=== PATIENT | female | born 1975 | race Hispanic/Latino ===

== ENCOUNTER → 2024-03-02 11:09 | Outpatient (REF) | payer BC, SELFPAY | LOC: HWRAD 11:09 | PROVIDERS: ATTENDING PHYSICIAN Nurse Practitioner Adult Health; FAMILY PHYSICIAN Family Medicine | DX: E78.5 Hyperlipidemia, unspecified (principal); E66.9 Obesity, unspecified; R06.09 Other forms of dyspnea; I89.0 Lymphedema, not elsewhere classified; R94.31 Abnormal electrocardiogram [ECG] [EKG] | CPT/HCPCS: 76700 ==

== ENCOUNTER → 2024-03-10 11:10 | Outpatient (REF) | payer BC, SELFPAY | LOC: HWWDC 11:10 | PROVIDERS: ATTENDING PHYSICIAN Obstetrics & Gynecology; FAMILY PHYSICIAN Family Medicine | DX: Z12.31 Encounter for screening mammogram for malignant neoplasm of breast (principal) | CPT/HCPCS: 77063; 77067 ==

== ENCOUNTER 2024-09-21 10:39 | Emergency (ER) | payer BC, SELFPAY ==
[2024-09-21 10:46] VITALS: BP 124/89
[2024-09-21 11:22] VITALS: BP 122/71
[2024-09-21 11:27] LABS: COVID-19 Antigen Negative (Negative)
[2024-09-21 11:30] VITALS: BMI 35.5
[2024-09-21 11:43] LABS: % Basophils 0.3 % (0-2); % Eosinophils 0.3 % (0-6); % Immature Granulocytes 0.3 % (0-0.5); % Lymphocytes 16.6 % (20.5-51.1); % Monocytes 15.8 % (1.7-9.3); % Neutrophils 66.7 % (42.2-75.2); Absolute Lymphocytes 0.6 10^3/uL (1.2-3.4); Absolute Monocytes 0.6 10^3/uL (0.1-0.6); Absolute Neutrophils 2.5 10^3/uL (1.4-6.5); Hemoglobin 14.3 g/dL (12.0-16.0); Mean Corpuscular Hgb 30.5 pg (27.0-31.0); Mean Corpuscular Volume 89.6 fL (81.0-99.0); Mean Platelet Volume 11.5 fL (7.4-10.4); Nucleated Red Blood Cells % 0 %; Platelet Count 155 10^3/uL (130-400); Red Blood Cell Count 4.69 10^6/uL (4.20-5.40); Red Cell Dist. Width 13.3 % (11.5-14.5); White Blood Cell Count 3.7 10^3/uL (4.8-10.8)
[2024-09-21 12:04] LABS: ALT (SGPT) 16 U/L (0-35); AST (SGOT) 23 U/L (14-36); Alkaline Phosphatase 51 U/L (38-126); Blood Urea Nitrogen 9 mg/dl (7-17); Calcium 8.9 mg/dl (8.4-10.2); Carbon Dioxide 28 mmol/L (22-30); Chloride 100 mmol/L (98-107); Estimated Creatinine Clearance 113 ml/min; Glucose 99 mg/dl (70-99); Potassium 3.8 mmol/L (3.5-5.1); Sodium 133 mmol/L (135-145); Total Bilirubin 0.2 mg/dl (0.2-1.3); eGFR > 60.00
--- NOTE | 2024-09-21 12:07 | ED.GENMED ---
History of Present Illness
General
Chief Complaint: Cold/Flu/URI Symptoms
Source: patient
Exam Limitations: none
Time Seen by Provider: 09/21/24 11:24
Nursing documentation reviewed up to this point in time: agreed with
History of Present Illness
History of Present Illness:
48 yo female with hx of chronic presents for fever, cough, fatigue lower extremity lymphedema that started 3 days ago. Her last Tylenol was at 4 AM. She also has pain in the mid upper chest with coughing. Denies N/V. She does have a headache.
Past History
Past History
ED Past Medical History: Other (Chronic lymphedema of legs, left leg chronically larger than right.)
Social History
Tobacco: Non-smoker
Alcohol: None
Drug: None
Personal:
Living: with family
Employment: Employed
Family History
Family History: Other (Noncontributory)
Review of Systems
Review of Systems
Allergies reviewed?: Yes
All Other Systems: ROS reviewed and negative except as documented in HPI and ROS
Constitutional: Reports fever and fatigue
EENT: Denies sore throat
Respiratory: Reports cough; Denies trouble breathing
Cardiac: Reports chest pain
ABD/GI: Denies abdominal pain, nausea, vomiting or diarrhea
: Denies dysuria, frequency or difficulty voiding
Musculoskeletal: Reports no symptoms
Skin: Reports no symptoms
Neurological: Reports headache; Denies dizzy, weakness or numbness
Phy Exam
Physical Exam
Physical Exam:
GENERAL: No acute distress. A&Ox3.
CONSTITUTIONAL: Temp 101.6
EYES: clear, conjunctivae normal
ENMT: moist mucus membranes, Pharynx nl
RESPIRATORY: Regular respirations, nonlabored, lungs clear. Intermittent cough
CARDIOVASCULAR: Regular rate and rhythm, no murmurs, no rubs.
GI: Soft, nontender, normal BS
MUSCULOSKELETAL: Significant lymphedema L>R. Moves with some difficulty due to size of legs.
SKIN: Warm, dry, pink
PSYCH: Normal mood and affect. Well kept, interactive and appropriate
NEUROLOGIC: Awake, alert and oriented. No focal neurological deficits
Course
Orders/Labs/Results
Orders:
Orders
09/21/24 11:06
COVID-19 Antigen Urgent
Source: Nasal Swab
Influenza A+B Rapid Molecular Urgent
NATALEE Source: Nasal Swab
Specimen Description:
09/21/24 11:12
IV Insert/Care/Rem.- Treatment PRN
09/21/24 11:20
Complete Blood Count/With Diff Urgent
Comprehensive Metabolic Panel Urgent
09/21/24 11:31
Electrocardiogram (*1) Urgent
Reason for Study: Chest Pain
EKG- Treatment ONCE
09/21/24 12:06
Acetaminophen [Tylenol] 1,000 mg PO NOW STA
09/21/24 12:07
CR Chest - 2 Views Urgent
Comment:
Reason For Exam: cough, fever, flu A pos
09/21/24 15:04
Azithromycin [Zithromax] 500 mg PO NOW STA
09/21/24 15:05
Azithromycin [Zithromax] 500 mg .ROUTE .STK-MED ONE
Abnormal Lab Results
09/21/24
11:20
WBC 3.7 L 10^3/uL
(4.8-10.8)
MPV 11.5 H fL
(7.4-10.4)
Absolute Lymphs (auto) 0.6 L 10^3/uL
(1.2-3.4)
Lymphocytes % 16.6 L %
(20.5-51.1)
Monocytes % 15.8 H %
(1.7-9.3)
Sodium 133 L mmol/L
(135-145)
09/21/24 11:20
09/21/24 11:20
Vital Signs
Initial and Last Documented VS:
Initial Vital Signs
Temp Pulse Resp BP Pulse Ox
100.1 F 118 16 124/89 97
09/21/24 10:46 09/21/24 10:46 09/21/24 10:46 09/21/24 10:46 09/21/24 10:46
Last Documented Vital Signs
Temp Pulse Resp BP Pulse Ox
99.6 F 90 18 97/58 94
09/21/24 14:01 09/21/24 14:01 09/21/24 14:01 09/21/24 14:01 09/21/24 14:01
MDM/Problems Addressed
Differential Diagnosis Includes:
Flu, Covid, PNA
MDM/Problems Addressed:
48 yo female with hx of chronic presents for fever, cough, fatigue lower extremity lymphedema that started 3 days ago. Her last Tylenol was at 4 AM. She also has pain in the mid upper chest with coughing.
Temperature 101.6.
EKG: Sinus tach 106
Pulse ox 97% RA
CBC with no clinically significant abnormality
CMP normal
COVID-negative
Flu a positive
2:45 p.m.
CXR: IMPRESSION:
Bibasilar patchy opacities which are likely related to viral/atypical infection. There is associated trace right-sided pleural effusion.
Pt defervesced to 99.6, drinking and eating well
Rx for Azithromycin and Tessalon Perles sent to her pharmacy
Stable for discharge
*Critical Care Note
Total Time (30-74mins, 75-104mins- exclusive of procedures): Not Applicable
ED Attending Note
-
Portions of this chart may have been created with voice recognition software.� Occasional wrong word or��sound alike� substitutions may have occurred due to the inherent limitations of voice recognition software.
Discharge Plan
Departure
Patient Disposition: Home (Routine Discharge)
Date of Disposition: 09/21/24
Time of Disposition: 15:05
Patient with high blood pressure during this ER visit?: No
Condition: Fair
Covid-19: Negative COVID-19
Discharge Problem:
Influenza A, Atypical pneumonia
Instructions: Fever, Adult (DC), Pneumonia in adults - Discharge instructions, Flu in adults - ED discharge instructions
Prescriptions:
New
azithromycin 250 mg tablet
250 mg PO DAILY 4 Days Qty: 4 0RF
benzonatate 100 mg capsule
100 mg PO TID PRN (Reason: Cough) Qty: 20 0RF
No Action
ascorbic acid (vitamin C) [Vitamin C] 500 mg Tablet
500 mg PO DAILY
cholecalciferol (vitamin D3) [Vitamin D3] 25 mcg (1,000 unit) Capsule
25 mcg PO DAILY
tramadol 50 mg tablet
50 mg PO Q8H PRN (Reason: Mod sev pain) Qty: 14 0RF
midodrine 5 mg Tablet
5 mg PO TID@0800,1300,1800 Qty: 60 0RF
Rx Instructions:
HOLD DOSE IF SYSTOLIC BLOOD PRESSURE GREATER THAN 100
cephalexin 500 mg capsule
500 mg PO BID 3 Days Qty: 6 0RF
Referrals:
Suzanne Muñoz, [Family Provider] - Follow up in 10 days
Activity Restrictions/Additional Instructions:
As we discussed, you most likely have something called atypical pneumonia or walking pneumonia.
You had a dose of antibiotic azithromycin here today, I sent the rest of the prescription to your pharmacy, pick it up and start it tomorrow
Alternate Tylenol 650 or 1000 mg with ibuprofen 600 mg taking 1 or the other every 3 hours as needed for fever or body aches.
Interventions
Interventions:
*Risk Screen - Suicide Last Done: 09/21/24 10:46
*General Assessment Last Done: 09/21/24 11:30
*Neglect/Abuse Screening Last Done: 09/21/24 10:46
ED- Fall Risk Assessment Last Done: 09/21/24 11:09
*ED COVID-19 Vaccine History Last Done: 09/21/24 11:30
*Nursing Disposition Last Done: 09/21/24 15:47
ED- Pulmonary Assessment Last Done: 09/21/24 11:27
Discharge Date and Time
Print Language: GABONESE
[2024-09-21] MEDS: TYLENOL 1000 MG PO (12:10)
[2024-09-21 14:01] VITALS: BP 97/58
--- NOTE | 2024-09-21 14:10 | EDRN ---
Pt OOB at this time and now voiding on commode.
[2024-09-21] MEDS: ZITHROMAX 500 MG PO (15:09)
--- NOTE | 2024-09-21 15:10 | EDRN ---
Pt states her cannot pick her up until 16:00.
--- NOTE | 2024-09-21 15:40 | EDRN ---
Pt discharged to [facility] to await spouse who is picking up their children from school and will not arrive until after 16:00. Pt stated she could not get up but pt was able to get up to chair on other side of room and onto commode. Pt did get up to w/c
and got in and taken to recliner #4 and settled in. Barak CALDERON given report on pt.
--- NOTE | 2024-09-21 16:33 | EDRN ---
Barak Said pt left from [facility] at 16:18
== END 2024-09-21 16:18 | disposition home or self-care (01) ==
LOC: EMR 10:39
PROVIDERS: EMERGENCY PHYSICIAN Student in an Organized Health Care Education/Training Program; FAMILY PHYSICIAN Family Medicine
DX: J10.00 Influenza due to other identified influenza virus with unspecified type of pneumonia (principal); J18.9 Pneumonia, unspecified organism; Z11.52 Encounter for screening for COVID-19
CPT/HCPCS: 99285; 71046; 80053; 85025; 87502; 87811; 93005

== ENCOUNTER 2024-09-23 17:58 | Emergency (ER) | payer BC, SELFPAY ==
[2024-09-23 18:12] VITALS: BP 110/72
--- NOTE | 2024-09-23 18:15 | ED.GENMED ---
ED Provider Triage
-
Patient seen by provider in Triage?: Seen in Triage
Attestation: A medical screening examination has been initiated by a qualified medical provider. Based on the assessment performed at this time, it has been determined that an emergent medical condition may exist and the patient has been informed
that further medical evaluation and possible additional diagnostic testing may be needed.
HPI: Recently seen in this ER 2 days ago and diagnosed with atypical pneumonia, today felt worsening shortness of breath and lightheadedness. Pulse ox 85% reportedly at home. Here 97% patient in no acute respiratory distress. Reports fever last
night. Afebrile here. Imaging and labs from the other day reviewed. Will repeat labs and EKG.
GENERAL: Alert , in no apparent distress
EYE: No visual abnormalities.
NECK: Trachea midline
ENT: No visible abnormalities.
LUNGS: No acute respiratory distress
NEUROLOGICAL: Alert and oriented
SKIN: Skin intact. No visible changes.
MUSCULOSKELETAL: Moving extremities normally
PSYCH: Normal and appropriate interaction.
This is a medical evaluation conducted in person to initiate diagnostic evaluation and provide initial therapeutics. Please see further documentation by the treating clinician.
History of Present Illness
General
Chief Complaint: Breathing Problem
Source: patient
Time Seen by Provider: 09/23/24 18:59
History of Present Illness
History of Present Illness:
48-year-old female presenting back to the emergency department for evaluation after she was diagnosed with flu and pneumonia 2 days ago while in the emergency department, today was checking her pulse ox at home and noted it was 88% on room air.
Patient notes continued cough and shortness of breath prompting her to come back to the ER. No new symptoms today.
Past History
Past History
ED Past Medical History: Other (Chronic lymphedema of legs, left leg chronically larger than right.)
ED Past Surgical History: Other
Social History
Tobacco: Non-smoker
Alcohol: None
Drug: None
Personal:
Living: with family
Employment: Employed
Family History
Family History: Other (Noncontributory)
Review of Systems
Review of Systems
All Other Systems: ROS reviewed and negative except as documented in HPI and ROS
Phy Exam
Physical Exam
Physical Exam:
GENERAL: Alert , in no apparent distress
EYE: conjunctiva clear
Head: Normocephalic atraumatic
NECK: Supple,
ENT: mmm.
LUNGS: no acute respiratory distress
NEUROLOGICAL: Alert and oriented
SKIN: Warm and dry, skin intact.
MUSCULOSKELETAL: well perfused.
PSYCH: Normal and appropriate interaction.
Scores
Heart Failure Risk
Heart Failure Risk Score: Not Applicable
Heart Score for Chest Pain Patients
STEMI patient?: Not applicable
Withdrawal Assessment of Alcohol
Withdrawal Assessment Completed?: Not applicable
Course
Orders/Labs/Results
Orders:
Orders
09/23/24 18:14
Basic Metabolic Panel Urgent
Complete Blood Count/With Diff Urgent
09/23/24 18:15
NT-proBNP Urgent
Troponin I Urgent
Vital Signs
Initial and Last Documented VS:
Initial Vital Signs
Pulse Ox
98
09/23/24 18:00
Last Documented Vital Signs
Temp Pulse Resp BP Pulse Ox
98.4 F 80 16 110/72 98
09/23/24 18:12 09/23/24 18:12 09/23/24 18:12 09/23/24 18:12 09/23/24 18:12
MDM/Problems Addressed
Differential Diagnosis Includes:
Known flu, viral pneumonia, I do not have concern for PE or other emergent pathology
MDM/Problems Addressed:
48-year-old female presenting back to the emergency department after being diagnosed with flu 2 days ago. Patient concerned because her home pulse oximeter was reading 88% on room air. Patient continuously monitored and has a pulse ox between 97
and 99% on room air and is in no acute respiratory distress. Patient was placed back out in the waiting room and ultimately was requesting to be discharged home as she did not feel anything further would be done. Labs have been ordered however
patient is declining. At this time has a normal pulse ox and is in no acute respiratory distress and hemodynamically stable I do feel it is reasonable patient to be discharged home. She was again advised on return precautions but otherwise stable.
*Pulse Oximetry
Patient hypoxic: no
*Critical Care Note
Total Time (30-74mins, 75-104mins- exclusive of procedures): Not Applicable
Data Reviewed
Review of Other/Old Records Reveals: Labs, Records and Radiology Studies
ED Attending Note
-
Portions of this chart may have been created with voice recognition software.� Occasional wrong word or��sound alike� substitutions may have occurred due to the inherent limitations of voice recognition software.
Discharge Plan
Departure
Patient Disposition: Home (Routine Discharge)
Date of Disposition: 09/23/24
Time of Disposition: 18:58
Patient with high blood pressure during this ER visit?: No
Discharge Problem:
Influenza A
Instructions: Flu in adults - Discharge instructions
Prescriptions:
No Action
ascorbic acid (vitamin C) [Vitamin C] 500 mg Tablet
500 mg PO DAILY
cholecalciferol (vitamin D3) [Vitamin D3] 25 mcg (1,000 unit) Capsule
25 mcg PO DAILY
tramadol 50 mg tablet
50 mg PO Q8H PRN (Reason: Mod sev pain) Qty: 14 0RF
midodrine 5 mg Tablet
5 mg PO TID@0800,1300,1800 Qty: 60 0RF
Rx Instructions:
HOLD DOSE IF SYSTOLIC BLOOD PRESSURE GREATER THAN 100
cephalexin 500 mg capsule
500 mg PO BID 3 Days Qty: 6 0RF
azithromycin 250 mg tablet
250 mg PO DAILY 4 Days Qty: 4 0RF
benzonatate 100 mg capsule
100 mg PO TID PRN (Reason: Cough) Qty: 20 0RF
Interventions
Interventions:
*Risk Screen - Suicide Last Done: 09/23/24 18:12
*General Assessment Last Done: 09/23/24 18:12
*ED COVID-19 Vaccine History Last Done: 09/23/24 18:12
*Nursing Disposition Last Done: 09/23/24 19:16
Discharge Date and Time
Discharge Date/Time: 09/23/24 19:00
Print Language: LAO
== END 2024-09-23 19:00 | disposition home or self-care (01) ==
LOC: EMR 17:58
PROVIDERS: EMERGENCY PHYSICIAN Emergency Medicine
DX: J10.1 Influenza due to other identified influenza virus with other respiratory manifestations (principal)
CPT/HCPCS: 99282

== ENCOUNTER 2024-12-17 14:37 | Observation (INO) | payer OTHER, SELFPAY ==
[2024-12-17] VITALS (8 sets, daily range): BP systolic 104–140; BP diastolic 67–85; BMI 32.8; BMI 36.4
[2024-12-17 11:33] LABS: % Basophils 0.5 % (0-2); % Eosinophils 2.7 % (0-6); % Immature Granulocytes 0.2 % (0-0.5); % Lymphocytes 33.7 % (20.5-51.1); % Monocytes 5.1 % (1.7-9.3); % Neutrophils 57.8 % (42.2-75.2); Absolute Eosinophils 0.2 10^3/uL (0-0.7); Absolute Monocytes 0.3 10^3/uL (0.1-0.6); Absolute Neutrophils 3.4 10^3/uL (1.4-6.5); Hematocrit 43.4 % (37.0-47.0); Hemoglobin 14.6 g/dL (12.0-16.0); Mean Corp Hgb Conc. 33.6 g/dL (33.0-37.0); Mean Corpuscular Volume 92.1 fL (81.0-99.0); Nucleated Red Blood Cells % 0 %; Platelet Count 196 10^3/uL (130-400); Red Blood Cell Count 4.71 10^6/uL (4.20-5.40); Red Cell Dist. Width 13.1 % (11.5-14.5); White Blood Cell Count 5.9 10^3/uL (4.8-10.8)
--- NOTE | 2024-12-17 11:44 | ED.GENMED ---
History of Present Illness
General
Chief Complaint: Swelling
Source: patient and records
Time Seen by Provider: 12/17/24 11:21
History of Present Illness
History of Present Illness:
48-year-old female with past medical history of chronic lymphedema presenting to the emergency department for evaluation of acute on chronic exacerbation of her lymphedema now with erythema, pain and worsening edema over the last 48 to 72 hours,
yesterday reportedly had a tactile fever that improved with Tylenol. Patient states she was admitted for a similar infection about a year ago secondary to a dog bite. She states she has been to multiple lymphedema specialists and gets treatment as
an outpatient but states none of this seems to be helping. She has been also seen by vascular and wound care. Patient denies any focal weakness, numbness, chest pain, shortness of breath or any other concerns presently.
Past History
Past History
ED Past Medical History: Other (Chronic lymphedema of legs, left leg chronically larger than right.)
ED Past Surgical History: Other
Social History
Tobacco: Non-smoker
Alcohol: None
Drug: None
Personal:
Living: with family
Employment: Employed
Family History
Family History: Other (Noncontributory)
Review of Systems
Review of Systems
All Other Systems: ROS reviewed and negative except as documented in HPI and ROS
Phy Exam
Physical Exam
Physical Exam:
GENERAL: Alert , in no apparent distress
HEAD: NCAT
EYE: clear conjunctiva
NECK: Supple
ENT: o/p clr, mmm.
CARDIAC: Regular rate and rhythm .
LUNGS: Clear breath sounds bilaterally, no acute respiratory distress, no wheezes/rales/rhonchi
NEUROLOGICAL: Alert and oriented
SKIN: Warm and dry, severe lymphedema b/l, left significantly worse than right. There is circumferential erythema to lower half of the left lower leg. CR < 2 sec, sensation grossly intact to light touch. LROM at ankle and foot 2/2 edema
MUSCULOSKELETAL: see skin exam
PSYCH: Normal and appropriate interaction.
Scores
Heart Failure Risk
Heart Failure Risk Score: Not Applicable
Heart Score for Chest Pain Patients
STEMI patient?: Not applicable
Withdrawal Assessment of Alcohol
Withdrawal Assessment Completed?: Not applicable
Course
Orders/Labs/Results
Orders:
Orders
12/17/24 11:15
Complete Blood Count/With Diff Urgent
Comprehensive Metabolic Panel Urgent
Lactic Acid Urgent
Blood Culture Urgent
NATALEE Source: Blood/Venous
Specimen Description:
12/17/24 11:33
US Periph Venous LOWER Ext LT Urgent
Comment:
Reason For Exam: edema, erythema
12/17/24 11:43
NT-proBNP Urgent
Vancomycin [Vancocin] 2,000 mg 0.9% Sodium Chloride 500 ml [Nss] 500 ml IV NOW
Abnormal Lab Results
12/17/24
11:15
MPV 12.0 H fL
(7.4-10.4)
12/17/24 11:15
12/17/24 11:15
Vital Signs
Initial and Last Documented VS:
Initial Vital Signs
Temp Pulse Resp BP Pulse Ox
97.7 F 74 16 140/83 100
12/17/24 11:03 12/17/24 11:03 12/17/24 11:03 12/17/24 11:03 12/17/24 11:03
Last Documented Vital Signs
Temp Pulse Resp BP Pulse Ox
97.7 F 81 17 116/76 99
12/17/24 11:03 12/17/24 12:45 12/17/24 12:45 12/17/24 12:25 12/17/24 12:45
MDM/Problems Addressed
Differential Diagnosis Includes:
Acute on chronic exacerbation of lymphedema, venous stasis dermatitis, cellulitis, DVT
MDM/Problems Addressed:
48-year-old female presenting to the ER for evaluation of left lower extremity edema, erythema, reportedly febrile last night. Afebrile here and in no acute distress. Patient does have severe left lower extremity lymphedema with what appears to be
venous stasis dermatitis but cannot rule out a superimposed cellulitis. Given patient reports a fever will check labs and start patient on IV antibiotics. Patient reportedly had reaction to Unasyn and self started herself on Keflex a few days ago.
Will treat with Vanco now. Plan to admit
Chronic conditions affecting care: Other (Lymphedema/chronic venous stasis)
*Radiology
Radiology exam reviewed: radiology read reviewed
*Pulse Oximetry
Patient hypoxic: no
*Critical Care Note
Total Time (30-74mins, 75-104mins- exclusive of procedures): Not Applicable
Data Reviewed
Review of Other/Old Records Reveals: Labs, Records and Discharge Summary
Patient Management
Discussion with other providers: Hospitalist
Escalation/DeEscalation of care consider admission/obs:
Patient's ultrasound is negative for DVT. We discussed possibility of outpatient treatment by changing antibiotic however due to patient's pain and reported fever we will plan for admission for IV antibiotics and monitoring. Hospitalist team
notified and accepts for continued evaluation and treatment
ED Attending Note
-
Portions of this chart may have been created with voice recognition software.� Occasional wrong word or��sound alike� substitutions may have occurred due to the inherent limitations of voice recognition software.
Discharge Plan
Departure
Patient Disposition: Admit
Date of Disposition: 12/17/24
Time of Disposition: 13:09
Presentation/result/management discussed w/ accepting MD/DO: Hospitalist
Discharge Problem:
Cellulitis of left lower extremity, Lymphedema, Venous stasis dermatitis
Prescriptions:
No Action
ascorbic acid (vitamin C) [Vitamin C] 500 mg Tablet
500 mg PO DAILY
cholecalciferol (vitamin D3) [Vitamin D3] 25 mcg (1,000 unit) Capsule
25 mcg PO DAILY
tramadol 50 mg tablet
50 mg PO Q8H PRN (Reason: Mod sev pain) Qty: 14 0RF
midodrine 5 mg Tablet
5 mg PO TID@0800,1300,1800 Qty: 60 0RF
Rx Instructions:
HOLD DOSE IF SYSTOLIC BLOOD PRESSURE GREATER THAN 100
cephalexin 500 mg capsule
500 mg PO BID 3 Days Qty: 6 0RF
azithromycin 250 mg tablet
250 mg PO DAILY 4 Days Qty: 4 0RF
benzonatate 100 mg capsule
100 mg PO TID PRN (Reason: Cough) Qty: 20 0RF
Referrals:
Cameron Morales MD [Family Provider] -
Interventions
Interventions:
*Risk Screen - Suicide Last Done: 12/17/24 11:04
*General Assessment Last Done: 12/17/24 11:31
*Neglect/Abuse Screening Last Done: 12/17/24 11:04
*ED- Fall Risk Assessment Last Done: 12/17/24 11:31
ED- Cardiac Assessment Last Done: 12/17/24 11:31
ED- Pulmonary Assessment Last Done: 12/17/24 11:31
ED-Skin Assessment Last Done: 12/17/24 11:31
Discharge Date and Time
Print Language: MAORI
[2024-12-17 11:48] LABS: Lactic Acid 0.8 mmol/L (0.7-2.0)
[2024-12-17 11:50] LABS: ALT (SGPT) 23 U/L (0-35); AST (SGOT) 24 U/L (14-36); Albumin 4.3 g/dl (3.5-5.0); Alkaline Phosphatase 40 U/L (38-126); Blood Urea Nitrogen 11 mg/dl (7-17); Calcium 9.6 mg/dl (8.4-10.2); Carbon Dioxide 30 mmol/L (22-30); Chloride 102 mmol/L (98-107); Estimated Creatinine Clearance 109 ml/min; Glucose 90 mg/dl (70-99); Potassium 4.7 mmol/L (3.5-5.1); Sodium 139 mmol/L (135-145); Total Bilirubin 0.6 mg/dl (0.2-1.3); Total Protein 7.5 g/dl (6.3-8.2); eGFR > 60.00
[2024-12-17] MEDS: VANCOCIN 540 MG IV (12:22)
[2024-12-17 12:33] LABS: NT-proBNP 91.3 pg/ml
--- NOTE | 2024-12-17 14:06 | HPS.HSE ---
Family Physician
-
Family Physician: Cameron Morales MD
Chief Complaint
-
leg swelling
History of Present Illness
48-year-old female with past medical history as listed below who is presenting with complaints of left leg edema. Patient stated she started noticing left leg increasing swelling for the past 48 to 72 hours. Also noticed increasing erythema and
open blisters. States she had tactile fever. Did not take temperature at home. States she is due to see and follow-up with new lymphedema clinic in [facility]. States she has Velcro wraps however her legs have gotten distended and not
appropriate sized at this point. Patient stated she had her echocardiogram 2 years ago due to palpitation and followed up with cardiology. No arrhythmias were found. Echo was found to be normal. States now the edema is uptrending to her thighs.
Never tried diuretics in the past. Denies any dizziness, nausea, vomiting, abdominal pain or diarrhea. Denies any focal weakness numbness, chest pain or shortness of breath.
Medical History
Past Medical History
Past Medical History: Reports Other
Additional Past Medical History:
Bilateral lymphedema
Palpitations
Past Surgical History: Reports
Social History
Alcohol: None
Drug: None
Living: With Family
Family History
Family History: Not pertinent
Allergies / Home Medications
Allergies reflects when Allergies were last updated in [facility].
Home Medications with original date entered in [facility]
Allergy/Medication List:
Allergies
Allergy/AdvReac Type Severity Reaction Status Date / Time
ampicillin [From Unasyn] Allergy Rash Verified 12/17/24 11:16
sulbactam [From Unasyn] Allergy Rash Verified 12/17/24 11:16
Home Medications
acetaminophen 325 mg tablet (Tylenol) 650 mg PO Q6HPRN PRN mild pain 12/17/24
therapeutic multivitamin 1 tab PO DAILY 12/17/24
Review of Systems
-
History Source: Patient
A 12 point ROS was completed and negative except as noted: Yes
Physical Exam
Vital Signs
Vital Signs
Temp Pulse Resp BP Pulse Ox
97.7 F 81 21 122/82 99
12/17/24 11:03 12/17/24 14:03 12/17/24 14:03 12/17/24 14:02 12/17/24 14:03
Physical Exam
General: Well Developed, Well Nourished, No Apparent Distress and Other (Flushed)
HEENT: NormoCephalic, Moist mucous membranes and Atraumatic
Respiratory: Clear
Cardiac: S1/S2 and Regular Rhythm; No Murmur or Rub
GI: Soft, Non Tender, Non Distended and Normal Bowel Sounds; No Organomegaly
Rectal: Deferred by Provider
Musculoskeletal: No Clubbing, No Cyanosis, Edema, Left Lower Extremity (Left lower leg with erythema with 1 open blister. no purulent drainage noted. left leg significantly edematous compared to right) and Edema, Right Lower Extremity
Skin: No Rash
Neuro: Awake, AO x 3, No Motor Deficits and Nonfocal/grossly intact
Psych: Calm and Anxious
Laboratory Results
-
12/17/24 11:15
12/17/24 11:15
Laboratory Results
Lactic Acid 0.8 mmol/L (0.7-2.0) 12/17/24 11:15
Total Bilirubin 0.6 mg/dl (0.2-1.3) 12/17/24 11:15
AST 24 U/L (14-36) 12/17/24 11:15
ALT 23 U/L (0-35) 12/17/24 11:15
Alkaline Phosphatase 40 U/L (38-126) 12/17/24 11:15
Impression/Plan
-
#Suspected left lower leg cellulitis versus venous stasis dermatitis
#Chronic bilateral lymphedema
Follow-up on the blood culture
Patient WBC count normal. Afebrile here. Heart rate normal
Patient no prior history of MRSA. Discontinue vancomycin
Start patient on cefazolin. Patient has tolerated Keflex in the past.
Lower extremity elevation.
Wound care
Trial of Moiz wrap
proBNP normal
If blood pressure can tolerate can consider trial of diuretics.
Palpitations
Suspected anxiety
Monitor for now
DVT prophylaxis with Lovenox
Full code
I spent a total of 80 minutes with the patient or on the floor. More than 50% of this time involved counseling and coordination of care.
[2024-12-17] MEDS: TYLENOL 650 MG PO ×2 (15:39→20:44)
[2024-12-17] MEDS: ANCEF 10 IV ×2 (15:58→23:43)
--- NOTE | 2024-12-17 16:50 | WOUNDNOTE ---
[facility] RN note: Patient admitted with cellulitis, increased LLE edema and pain. Patient lives with family.
See H&P for complete history.
PMH: primary lymphedema L>R. She has been at [place] [facility] however, not for a very long time. She has Velcro compression garments (Farrow wraps) at home that don't fit her. She has lymphedema pump at home however, the sleeve doesn't
fit her LLE currently. She plan to go back to [place] [facility].
Wound Location and type/assessment: Patient admitted with: Mild red skin L anterior ankle/lower calf r/t lymphedema. +4 LLE edema. +2 RLE edema. Toes warm. Pedal pulses heard easily via portable Doppler. LLE Venous Doppler negative for DVT.
Appetite: good.
Pressure redistribution devices in place: [employer] Accumax. Patient is mobile however, she cannot lift her L heel off bed herself currently.
Plan: Cleansed L anterior lower calf/ankle with saline, Vaseline applied. Confirmed local skin care and L thigh high Moiz and R knee high Moiz wraps as tolerated with Dr. Romo. L thigh high and R knee high Moiz wraps applied using 6 inch Moiz wraps
and Le's elevated with pillows and air chair cushions with help from LUIS MIGUEL Gordon. Bilateral ankle and L posterior knee creases and L anterior lower calf padded with ABD pads under Moiz wraps. Patient tolerated well. Patient plans to ask family to
bring in her foam cushion for leg elevation in bed. Discussed with YUMIKO Negron.
Care plan to be updated and will follow as needed. Recommend patient follow up at [place] [facility].
[2024-12-17] MEDS: LOVENOX 40 MG SC (17:55)
--- NOTE | 2024-12-17 18:12 | PTCARENOTE ---
Pt arrived to floor from ED via stretcher. Ambulated with bed from hallway with assistance x1. Pt expressing 7/10 LLE pain. Stating relief after Tylenol with pain /10. SaO2 98% on room air. Regular rhythm auscultated. +4 LLE edema. +3 RLE edema. +1
nonpitting b/l UE edema. Pedal pulses present with doppler. Wound care nurse applied compression wraps. Pt eating dinner.
[2024-12-18 07:37] VITALS: BP 118/68
[2024-12-18] MEDS: HYDROPHOR 1 APPLIC TOPICAL (08:00)
[2024-12-18] MEDS: ANCEF 10 IV (08:00)
[2024-12-18 09:25] LABS: % Basophils 0.4 % (0-2); % Eosinophils 3.6 % (0-6); % Immature Granulocytes 0.2 % (0-0.5); % Lymphocytes 31.2 % (20.5-51.1); % Monocytes 6.7 % (1.7-9.3); % Neutrophils 57.9 % (42.2-75.2); Absolute Eosinophils 0.2 10^3/uL (0-0.7); Absolute Lymphocytes 1.4 10^3/uL (1.2-3.4); Absolute Monocytes 0.3 10^3/uL (0.1-0.6); Absolute Neutrophils 2.6 10^3/uL (1.4-6.5); Hemoglobin 13.8 g/dL (12.0-16.0); Mean Corp Hgb Conc. 34.5 g/dL (33.0-37.0); Mean Corpuscular Hgb 31.4 pg (27.0-31.0); Mean Corpuscular Volume 90.9 fL (81.0-99.0); Mean Platelet Volume 11.6 fL (7.4-10.4); Nucleated Red Blood Cells % 0 %; Platelet Count 179 10^3/uL (130-400); Red Cell Dist. Width 12.9 % (11.5-14.5); White Blood Cell Count 4.5 10^3/uL (4.8-10.8)
[2024-12-18 09:56] LABS: Blood Urea Nitrogen 12 mg/dl (7-17); Calcium 9.1 mg/dl (8.4-10.2); Carbon Dioxide 29 mmol/L (22-30); Chloride 105 mmol/L (98-107); Estimated Creatinine Clearance 115 ml/min; Glucose 95 mg/dl (70-99); Potassium 4.2 mmol/L (3.5-5.1); Sodium 139 mmol/L (135-145); eGFR > 60.00
--- NOTE | 2024-12-18 10:57 | W.PN.HOSP.TC ---
Today's Communication/Plan
-
po abx
tentative dc home later today-awaiting micro lab
Assessment / Plan
Assessment / Plan
General: Well Developed, Well Nourished, No Apparent Distress and Other (Flushed)
HEENT: NormoCephalic, Moist mucous membranes and Atraumatic
Respiratory: Clear
Cardiac: S1/S2 and Regular Rhythm; No Murmur or Rub
GI: Soft, Non Tender, Non Distended and Normal Bowel Sounds; No Organomegaly
Rectal: Deferred by Provider
Musculoskeletal: No Clubbing, No Cyanosis, Edema, Left Lower Extremity (Left lower leg with erythema significantly improved with 1 open blister. no purulent drainage noted. left leg significantly edematous compared to right) and Edema, Right Lower
Extremity
Skin: No Rash
Neuro: Awake, AO x 3, No Motor Deficits and Nonfocal/grossly intact
Psych: Calm and Anxious
#Suspected left lower leg cellulitis versus venous stasis dermatitis
#Chronic bilateral lymphedema
Patient WBC count normal. Afebrile here. Heart rate normal
Patient no prior history of MRSA. Discontinue vancomycin
Start patient on cefazolin. Patient has tolerated Keflex in the past.
Can transition to p.o. cephalosporin
Lower extremity elevation.
Wound care
Trial of Moiz wrap
proBNP normal
Preliminary blood cultures were negative
Recommended outpatient evaluation with vascular surgery for venous insufficiency suspected. Patient agreeable. Recommend to follow-up with PCP next week.
Palpitations
Suspected anxiety
Monitor for now
DVT prophylaxis with Lovenox
Full code
More than 30 minutes spent in discharge including
Final examination of the patient
Summarizing hospital stay
Instructions for continuing care to all relevant caregivers
Preparation of discharge records, prescriptions, and referral forms
Total time spent (in minutes): 42
Anticipated Discharge: Today
Subjective/Interval History
-
Date of Service: December 18, 2024
States the erythema and pain is better
Wants go home
Objective Data
-
Labs:
Laboratory Results
12/18/24
09:06
WBC 4.5 L
Hgb 13.8
Hct 40.0
Plt Count 179
Sodium 139
Potassium 4.2
Chloride 105
Carbon Dioxide 29
BUN 12
Creatinine 0.8
Glucose 95
Calcium 9.1
Vital Signs:
Vital Signs
Temp Pulse Resp BP Pulse Ox
98.5 F 63 18 118/68 96
12/18/24 07:37 12/18/24 07:37 12/18/24 07:37 12/18/24 07:37 12/18/24 07:37
I&O
12/17/24 12/18/24 12/19/24
06:59 06:59 06:59
Intake Total 720 / 720
Balance 720 / 720
--- NOTE | 2024-12-18 12:15 | W.DCSUMMARY ---
Discharge Summary
Discharge Data
Date of Admission: 12/17/24
Date of Discharge: 12/18/24
-
Pending Results: No
Hospital Course
48-year-old female past medical history of chronic lymphedema was presenting from home with complaints of worsening of left lower extremity edema and erythema. Patient was seen and evaluated. Patient stated of increasing left lower extremity
edema. Patient underwent lower extremity Doppler which was negative for overt DVT. Patient stated of some tactile fever at home. Patient without any leukocytosis. Patient was afebrile in the hospital. Preliminary blood cultures were negative.
Patient symptomology of the left lower leg likely with venous stasis dermatitis versus mild cellulitis. Patient was started on IV cefazolin. Patient erythema improved and was discharged with p.o. Keflex. Wound care also evaluated the patient
recommended compression therapy. Patient to follow-up at [facility] with lymphedema clinic.
Discharge Plan
-
Patient Disposition: Home (Routine Discharge)
Discharge Diagnosis/Procedures: Suspected left lower leg cellulitis versus venous stasis dermatitis
Condition: Fair
Diet: As tolerated
Activity: As tolerated
Driving Restrictions: As prior to admission
Activity Restrictions/Additional Instructions:
Skin Care Instructions
L anterior lower calf skin- with saline, pat dry, apply Aquaphor ointment daily. If skin opens/weeps, cover with adaptic and ABD pad daily and as needed for drainage.
L thigh high and R knee high Moiz wraps as tolerated; re-wrap daily and as needed for skin care/skin check. Pad ankle creases and L posterior knee crease with ABD pad/s under Moiz wraps.
Elevate Le's on pillows, foam cushion, add air chair cushions on top as needed for pressure redistributing.
Make appointment at lymphedema clinic.
Referrals:
Yusuf Fox MD [Active] - None (venous insuffiency)
Cameron Morales MD [Family Provider] - in less than 1 week
Prescriptions:
New
cephalexin 500 mg capsule
500 mg PO Q6H 6 Days Qty: 24 0RF
Continued
acetaminophen [Tylenol] 325 mg Tablet
650 mg PO Q6HPRN PRN (Reason: mild pain)
therapeutic multivitamin Tablet
1 tab PO DAILY
Discharge Orders:
Discharge Patient (As Directed); Ordered 12/18/24
Ordered By: Orlando Romo
Discharge Date and Time
Print Language: KINYARWANDA
[2024-12-18 12:19] VITALS: BP 135/82
--- NOTE | 2024-12-18 16:06 | CM ---
Patient discharged before seen by CM
no needs
PLAN: home, transported
== END 2024-12-18 14:03 | disposition home or self-care (01) ==
LOC: 1 ACUTE 14:37
PROVIDERS: Physician Assistant Medical; ADMITTING PHYSICIAN Hospitalist; EMERGENCY PHYSICIAN Emergency Medicine; FAMILY PHYSICIAN Family Medicine
DX: M79.89 Other specified soft tissue disorders (principal); I89.0 Lymphedema, not elsewhere classified; I87.2 Venous insufficiency (chronic) (peripheral); R00.2 Palpitations; Z88.0 Allergy status to penicillin
CPT/HCPCS: 80048; 80053; 83605; 83880; 85025; 87040; 87070; 87147; 93971; 96365; 96366; 99285; G0378

== ENCOUNTER 2025-04-01 18:01 | Emergency (ER) | payer OTHER, SELFPAY ==
[2025-04-01 18:02] VITALS: BP 148/87
--- NOTE | 2025-04-01 19:39 | ED.GENMED ---
History of Present Illness
General
Chief Complaint: Vaginal Bleeding
Time Seen by Provider: 04/01/25 18:37
History of Present Illness
History of Present Illness:
49-year-old female presenting to the emergency department for vaginal bleeding. Patient reports in mid January she had her menstrual cycle which lasted about 5 days. 4 days after her cycle ended, she started to have spotting. She notes that she has
had persistent menstrual bleeding since then. She reports that she is using about 5 pads a day, however not soaking through. She is well her primary care doctor who ordered her for blood tests and ultrasound imaging. She called for a gynecologic
appointment, however was not able to get in for the next few months. She also notes that she has been having some lightheadedness and generally feeling fatigued and unwell. Also notes some lower abdominal cramping. Denies any history of anemia.
Denies additional acute medical complaints.
Past History
Past History
ED Past Medical History: Other (Chronic lymphedema of legs, left leg chronically larger than right.)
ED Past Surgical History: Other
Social History
Tobacco: Non-smoker
Alcohol: None
Drug: None
Personal:
Living: with family
Employment: Employed
Family History
Family History: Other (Noncontributory)
Phy Exam
Physical Exam
Physical Exam:
General: Well-appearing, no clinical signs of dehydration, nontoxic and in no acute distress
HEENT: protecting airway
Neck: appears supple
CV: Normal heart rate
Resp: No accessory muscle use, no increased work of breathing
Abd: Soft and non-distended, mild tenderness to suprapubic region, no rebound or guarding
Extremities: No deformities, known history of lymphedema with significant swelling to the left lower extremity, reported as chronic
Neuro: alert, no focal neurologic deficit
: deferred
Rectal: deferred
Psych: Normal affect
Skin: Intact
Course
Orders/Labs/Results
Orders:
Orders
04/01/25 19:15
US Pelvis Only (non-obstetric) Urgent
Comment:
Reason For Exam: vaginal bleeding, lower cramping
04/01/25 20:48
Ketorolac [Toradol] 15 mg IM NOW STA
04/01/25 21:23
Complete Blood Count/With Diff Urgent
Comprehensive Metabolic Panel Urgent
04/01/25 21:36
Urinalysis Reflex To Culture Urgent
Specimen Description:
Date Specimen was Collected: 04/01/25
Time Specimen was Collected: 21:27
Urine Microscopic Reflex Cult Urgent
Abnormal Lab Results
04/01/25 04/01/25
21:23 21:36
MPV 11.8 H fL
(7.4-10.4)
BUN 23 H mg/dl
(7-17)
Ur Occult Blood Reflex 4+ A
(Negative)
Urine RBC 11-15 A /HPF
(0-2)
Urine Bacteria (Reflex) Few A
(Negative)
Urine Albumin (Reflex) 1+ A
(Neg - Trace)
04/01/25 21:23
04/01/25 21:23
Vital Signs
Initial and Last Documented VS:
Initial Vital Signs
Temp Pulse Resp BP Pulse Ox
98.4 F 68 16 148/87 97
04/01/25 18:02 04/01/25 18:02 04/01/25 18:02 04/01/25 18:02 04/01/25 18:02
Last Documented Vital Signs
Temp Pulse Resp BP Pulse Ox
97.9 F 70 18 115/80 98
04/01/25 21:42 04/01/25 22:00 04/01/25 21:42 04/01/25 21:42 04/01/25 21:42
MDM/Problems Addressed
MDM/Problems Addressed:
49-year-old female presenting with persistent vaginal bleeding and prolonged menstrual cycle. Vital signs on arrival are normal.
On exam patient is in no acute distress. No hemodynamic instability. Low suspicion for hemorrhage. Notes that she has been having light bleeding, no present tachycardia or hypotension. Possible symptomatic anemia, does note some
lightheadedness. Will obtain a laboratory analysis including CBC. Ultimately suspect etiology of bleeding is hormonal, premenopausal. Fibroids is also a consideration. Lower suspicion for severe intra-abdominal process given benign examination.
UTI is also consideration, some suprapubic tenderness. Will obtain urinalysis. Will obtain ultrasound imaging for further assessment
22:30 -ultrasound relatively unremarkable, with mention of possible adenomyosis. Normal hemoglobin and urine without sign of infection. Patient otherwise remains hemodynamically stable. Continue to suspect perimenopausal etiology of symptoms.
Feel stable for discharge with interval follow-up with gynecology. Return precautions discussed and patient verbalized understanding
*Pulse Oximetry
SaO2: 97
Oxygen Mode of Delivery: Room air
Patient hypoxic: no
*Critical Care Note
Total Time (30-74mins, 75-104mins- exclusive of procedures): Not Applicable
ED Attending Note
-
Portions of this chart may have been created with voice recognition software.� Occasional wrong word or��sound alike� substitutions may have occurred due to the inherent limitations of voice recognition software.
Discharge Plan
Departure
Patient Disposition: Home (Routine Discharge)
Date of Disposition: 04/01/25
Time of Disposition: 22:29
Patient with high blood pressure during this ER visit?: No
Condition: Good
Discharge Problem:
Dysfunctional uterine bleeding
Instructions: Heavy periods - ED discharge instructions
Prescriptions:
No Action
acetaminophen [Tylenol] 325 mg Tablet
650 mg PO Q6HPRN PRN (Reason: mild pain)
therapeutic multivitamin Tablet
1 tab PO DAILY
cephalexin 500 mg capsule
500 mg PO Q6H 6 Days Qty: 24 0RF
Referrals:
Jean Marie Patel MD [Active, Gynecology]
NONE,* [Active, Internal Medicine]
Activity Restrictions/Additional Instructions:
You were seen in the emergency department for vaginal bleeding
You were found to have reassuring laboratory analysis and ultrasound. There is mention of possible adenomyosis. 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
Please follow-up closely with your primary care physician.
Return to the emergency department for any worsening of your symptoms, or any development of chest pain, difficulty breathing, abdominal pain with persistent vomiting and inability to tolerate food or liquid by mouth (concern for dehydration),
weakness, headache or confusion, fever greater than 100.4, or any additional symptoms that are concerning to you.
Thank you for choosing [facility].
Interventions
Interventions:
*Risk Screen - Suicide Last Done: 04/01/25 18:03
*General Assessment Last Done: 04/01/25 21:40
*Neglect/Abuse Screening Last Done: 04/01/25 18:03
*ED- Fall Risk Assessment Last Done: 04/01/25 21:40
*ED COVID-19 Vaccine History Last Done: 04/01/25 21:40
ED-Female Genitourinary Assessment Last Done: 04/01/25 21:37
Discharge Date and Time
Print Language: CROATIAN
[2025-04-01] MEDS: TORADOL 15 MG IM (21:25)
[2025-04-01 21:34] LABS: Hematocrit 41.3 % (37.0-47.0); Hemoglobin 14.0 g/dL (12.0-16.0); Mean Corp Hgb Conc. 33.9 g/dL (33.0-37.0); Mean Corpuscular Volume 89.8 fL (81.0-99.0); Nucleated Red Blood Cells % 0 %; Platelet Count 200 10^3/uL (130-400); Red Cell Dist. Width 13.4 % (11.5-14.5)
[2025-04-01 21:41] VITALS: BP 115/80; BMI 38.5
[2025-04-01 21:42] VITALS: BP 115/80
[2025-04-01 21:59] LABS: ALT (SGPT) 19 U/L (0-35); AST (SGOT) 23 U/L (14-36); Albumin 4.4 g/dl (3.5-5.0); Alkaline Phosphatase 47 U/L (38-126); Blood Urea Nitrogen 23 mg/dl (7-17); Calcium 9.7 mg/dl (8.4-10.2); Carbon Dioxide 27 mmol/L (22-30); Chloride 106 mmol/L (98-107); Estimated Creatinine Clearance 104 ml/min; Glucose 97 mg/dl (70-99); Potassium 4.5 mmol/L (3.5-5.1); Sodium 138 mmol/L (135-145); Total Protein 7.7 g/dl (6.3-8.2); eGFR > 60.00
[2025-04-01 22:00] LABS: Urine Character Clear (Clear)
[2025-04-01 22:19] LABS: Urine Squamous Cell >30 /LPF (Few); Urine White Cell 0-2 /HPF (0-5)
== END 2025-04-01 22:43 | disposition home or self-care (01) ==
LOC: EMR 18:01
PROVIDERS: EMERGENCY PHYSICIAN Student in an Organized Health Care Education/Training Program; FAMILY PHYSICIAN Family Medicine
DX: N93.8 Other specified abnormal uterine and vaginal bleeding (principal)
CPT/HCPCS: 99284; 96374; 76856; 80053; 81003; 81015; 85025

== ENCOUNTER → 2025-07-06 11:54 | Outpatient (REF) | payer OTHER, SELFPAY | LOC: HWRAD 11:54 | PROVIDERS: ATTENDING PHYSICIAN Student in an Organized Health Care Education/Training Program | DX: M79.641 Pain in right hand (principal) | CPT/HCPCS: 73130 ==

== ENCOUNTER → 2025-08-16 07:59 | Outpatient (REF) | payer OTHER, SELFPAY | LOC: WDC 07:59 | PROVIDERS: ATTENDING PHYSICIAN Surgery | DX: D05.91 Unspecified type of carcinoma in situ of right breast (principal) | CPT/HCPCS: 19281; A4648 ==

== ENCOUNTER 2025-08-17 06:21 | Day surgery (SDC) | payer OTHER, SELFPAY ==
[2025-08-11 10:56] LABS: Hematocrit 42.3 % (37.0-47.0); Hemoglobin 14.3 g/dL (12.0-16.0); Mean Corp Hgb Conc. 33.8 g/dL (33.0-37.0); Mean Corpuscular Volume 89.4 fL (81.0-99.0); Platelet Count 239 10^3/uL (130-400); Red Cell Dist. Width 13.1 % (11.5-14.5)
[2025-08-11 12:43] LABS: ALT (SGPT) 20 U/L (0-35); AST (SGOT) 22 U/L (14-36); Albumin 4.4 g/dl (3.5-5.0); Alkaline Phosphatase 48 U/L (38-126); Blood Urea Nitrogen 18 mg/dl (7-17); Calcium 9.4 mg/dl (8.4-10.2); Carbon Dioxide 29 mmol/L (22-30); Chloride 104 mmol/L (98-107); Glucose 90 mg/dl (70-99); Potassium 4.7 mmol/L (3.5-5.1); Sodium 137 mmol/L (135-145); Total Protein 7.7 g/dl (6.3-8.2); eGFR > 60.00
[2025-08-11 13:20] VITALS: BMI 39.4
[2025-08-11 16:09] LABS: Prealbumin (Transthyretin) 31.9 mg/dl (17.6-36.0)
[2025-08-11 16:19] LABS: Vitamin D, 25-OH*** 43.9 ng/mL (30-80)
[2025-08-17] MEDS: TYLENOL 1000 MG PO (08:34)
[2025-08-17] MEDS: NORMOSOL-R/PLASMALYTE-A 1000 IV (08:35)
[2025-08-17 08:36] VITALS: BMI 39.4
[2025-08-17 08:37] VITALS: BP 113/69
[2025-08-17] MEDS: LOVENOX 40 MG SC (08:55)
[2025-08-17 10:35] VITALS: BP 125/73
[2025-08-17 10:45] VITALS: BP 127/73
[2025-08-17 11:00] VITALS: BP 141/100
[2025-08-17 11:15] VITALS: BP 125/84
--- NOTE | 2025-08-17 16:49 | W.IMMPOSTOP ---
Surgical Immed Post Op Note
-
Primary Surgeon: Maritza
Assisting Surgeon: None
Pre-op Diagnosis: LCIS right breast
Post-op Diagnosis: Same
Procedure Performed: Right localized lumpectomy
Anesthesia Type: TIVA
Specimen / Cultures: Right lumpectomy and superior margin
Estimated Blood Loss: 10cc
Complications: None
Operative Findings: reflector in specimen
--- NOTE | 2025-08-17 16:50 | OR.RPT ---
Operative Report
Operative Report
Date of procedure: 08/17/2025
Surgeon: Maritza
Preoperative diagnosis: LCIS right breast
Postoperative diagnosis: LCIS right breast
Procedure: Right localized lumpectomy
The patient is a 49-year-old female who underwent a stereotactic biopsy for indeterminate calcifications of the right breast. That resulted in a diagnosis of LCIS however because of the extensive nature of the calcifications the patient was
concerned about sampling error and she presents for localized lumpectomy to rule out upstaging. On the day prior to the procedure she presented to the [place] [facility] and underwent Adrienne reflector placement.
On the day of the procedure the patient presented to the same-day surgical services unit. She verified site and procedure and was prepped. DVT and antibiotic prophylaxis were provided. She was taken to the operating room and in the supine
position intravenous sedation was delivered. The right breast was prepped and draped in the usual sterile fashion. The Adrienne probe was used to sound out the Adrienne signal. A curvilinear incision was applied overlying the area of highest Adrienne signal.
Dissection was carried down to the appropriate area and a wide lumpectomy was performed using the cautery. During the dissection the reflector was encountered and displaced. This was retrieved and placed back into the specimen before sending it
to radiology. Time out of body was noted and the specimen was oriented for the pathologist. Specimen radiography confirmed the presence of the reflector within it. An additional superior margin was taken as this was palpated. All the resulting
tissue within the breast in this region was soft and fatty. Hemostasis was maintained with the cautery. Marcaine 0.5% plain was instilled into all tissues and the wound was closed in multiple layers using 2-0 Polysorb on deep and intermediate
tissue and 3-0 Polysorb on subcutaneous tissue. Skin was closed with a running subcuticular 4-0 Monocryl and several simple interrupted Monocryl's were placed through the skin closure for extra support. Surgical glue and a sterile compressive
dressing were applied. All sponge needle and instrument counts were correct and the patient was transferred to same-day surgical services for recovery
([id number])
== END 2025-08-17 12:00 | disposition home or self-care (01) ==
LOC: SDS 06:21
PROVIDERS: ATTENDING PHYSICIAN Surgery; FAMILY PHYSICIAN Family Medicine
DX: D05.01 Lobular carcinoma in situ of right breast (principal); N60.11 Diffuse cystic mastopathy of right breast
CPT/HCPCS: 19301; 36415; 76098; 80053; 82306; 84134; 85027; 88305; 88307; 88341; 88342; 88360